=== PATIENT | male | born 1935 | race Caucasian/White ===

== ENCOUNTER 2017-05-14 13:17 | Emergency (ER) | payer MEDICARE, BC, OTHER ==
[~2017-05-14] VITALS: Ht 172.7 cm; Wt 78.8 kg
[~2017-05-14 13:17] MED LIST: AZOP1SUS EACH EYE; CALC625 PO; GLUCTAB PO; HYDR-2768 PO; LATA0.00 EACH EYE; PROP80TA PO; RIVA15 PO; RIVA20 PO
[2017-05-14 13:26] VITALS: BP 99/61; PULSE 81; RESP 18; TEMP 98.6; O2SAT 96
[2017-05-14] MEDS ORDERED: SITA1TAB2 PO (13:45)
[2017-05-14] MEDS ORDERED: METF500T4 PO (13:45)
[2017-05-14] MEDS ORDERED: PROP80TA PO (13:45)
[2017-05-14] MEDS ORDERED: XARE20TA PO (13:45)
[2017-05-14] MEDS ORDERED: HYDR25TA5 PO (13:45)
[2017-05-14] MEDS ORDERED: AZIT250T3 PO (14:05)
--- NOTE | 2017-05-14 14:06 | PD ---
HPI Chief Complaint: Cold / Flu Symptoms Time Seen by Provider: 13:42 Travel History International Travel<30 days: No Contact w/Intl Traveler<30days: No Traveled to known affect area: No History of Present Illness HPI 82-year-old male here with cough and congestion 4 days. He denies fever or chills. He reports yellow sputum production. No chest pain, shortness of breath or wheezing. Symptom severity mild. No aggravating or alleviating factors. Reports somewhat symptoms in the past with bronchitis. PFSH Past Medical History Hx Anticoagulant Therapy: Yes Arthritis: Yes Asthma: Yes Blood Disorders: No Anxiety: No Depression: No Heart Rhythm Problems: No Cancer: No Cardiovascular Problems: Yes High Cholesterol: No Chest Pain: No Congestive Heart Failure: No COPD: No Cerebrovascular Accident: No Diabetes: Yes Patient Takes Glucophage: Yes Diminished Hearing: Yes (HX TINITIS) Endocrine: No Gastrointestinal Disorders: Yes (HX OF CONSTIPATION) Genitourinary: No Hypertension: Yes Immune Disorder: No Implanted Vascular Access Dvce: Yes Musculoskeletal: Yes Neurologic: Yes Psychiatric: Yes Reproductive: No Respiratory: Yes (PE) Immunizations Current: Yes Migraines: Yes Seizures: No Sleep Apnea: No ?: Not Past Surgical History Abdominal Surgery: Yes ( RT INGUINAL HERNIORHAPHY; ) AICD: No Arteriovenous Shunt: No Body Medical Devices: [id number] Cholecystectomy: Yes Joint Replacement: No Oral Surgery: Yes Pacemaker: No Tonsillectomy: Yes Other Surgery: Yes (GALLBLADDER, HERNIA, TOES REMOVED, ORTHO SURGERIES, METAL DENTURES.) Social History Alcohol Use: No Tobacco Use: No (QUIT IN 1972 - SMOKED CIGS, PIPE, CIGARS) Substance Use: No Allergies-Medications (Allergen,Severity, Reaction): Coded Allergies: codeine (Unverified Allergy, Mild, HYPER/DIARRHEA, 05/14/17) ragweed pollen (Unverified Allergy, Mild, CONGESTION, 05/14/17) Reported Meds & Prescriptions Reported Meds & Active Scripts Active Reported Januvia (Sitagliptin Phosphate) 100 Mg Tab 100 Mg PO DAILY Metformin ER (Metformin HCl) 500 Mg Ira 500 Mg PO BID With evening meal Xarelto (Rivaroxaban) 20 Mg Tab 20 Mg PO DAILY Hydrochlorothiazide 25 Mg Tab 25 Mg PO DAILY Propranolol (Propranolol HCl) 80 Mg Tab 80 Mg PO Q12HR Physical Exam Narrative GENERAL: Alert 82-year-old male. Nontoxic appearing. SKIN: Warm and dry. No rash HEAD: Normocephalic. EYES: No scleral icterus. No injection or drainage. NECK: Supple, trachea midline. CARDIOVASCULAR: Regular rate and rhythm without murmurs, gallops, or rubs. RESPIRATORY: Breath sounds equal bilaterally. No accessory muscle use. GASTROINTESTINAL: Abdomen soft, non-tender, nondistended. MUSCULOSKELETAL: No cyanosis, or edema. BACK: Nontender without obvious deformity. No CVA tenderness. Data Data Last Documented VS Vital Signs Date Time Temp Pulse Resp B/P (MAP) Pulse Ox O2 Delivery O2 Flow Rate FiO2 05/14/17 13:26 98.6 81 18 99/61 (74) 96 MDM Medical Decision Making Medical Screen Exam Complete: Yes Emergency Medical Condition: Yes Differential Diagnosis Bronchitis, pneumonia, URI Narrative Course 82-year-old male here with reactive cough 4 days. He is well-appearing. Vital signs are stable. Similar symptoms in the past with bronchitis. Diagnosis Primary Impression: Bronchitis Referrals: Primary Care Physician Additional Instructions: Antibiotics as prescribed. Follow-up the primary doctor. Return if he developed new or worsening symptoms Scripts Azithromycin (Azithromycin) 250 Mg Tab 250 MG PO DIRECTED for Infection, #6 TAB 0 Refills Take 2 tabs (500 mg) on day 1 then 1 tab daily x 4 days. Prov: Sandy Waller 05/14/17 Disposition: 01 DISCHARGE HOME Condition: Stable Sandy Waller May 14, 2017 14:06
== END 2017-05-14 14:12 | disposition home or self-care (01) ==
LOC: PHEFT 13:17
DX: J40 Bronchitis, not specified as acute or chronic (principal); M19.90 Unspecified osteoarthritis, unspecified site; J45.909 Unspecified asthma, uncomplicated; E11.9 Type 2 diabetes mellitus without complications; I10 Essential (primary) hypertension; Z86.711 Personal history of pulmonary embolism; Z79.899 Other long term (current) drug therapy; Z88.5 Allergy status to narcotic agent
CPT/HCPCS: 99283